=== PATIENT | male | born 1960 | race Caucasian/White ===

== ENCOUNTER 2023-04-29 20:59 | Emergency (ER) | payer OTHER ==
[2023-04-29 21:35] LABS: Amphetamine Not Detected (NotDetected); Bacteria/HPF 1+ HPF (None Seen); Barbiturates Screen Not Detected (NotDetected); Benzodiazepine Screen Not Detected (NotDetected); Bilirubin Negative (Negative); Blood, Urine 1+ (Negative); CAUTI Indications for Culture Alt mental st,lethar; Clarity Turbid (Clear); Cocaine Metabolite Screen Not Detected (NotDetected); Glucose, Urine (Dipstick) Normal (Negative); Ketone, Urine Negative (Negative); Leukocyte 500 Leu/uL (Negative); Methadone Not Detected (NotDetected); Methamphetamine Not Detected (NotDetected); Nitrite Negative (Negative); Opiate Screen Not Detected (NotDetected); Oxycodone Screen Not Detected (NotDetected); Phencyclidine (PCP) Not Detected (NotDetected); Protein, Urine (Dipstick) 50 mg/dL (Neg-Trace); Specific Gravity, Urine 1.016 (1.002-1.036); Squamous Epithelial 0-3 HPF (0-3); THC/Cannabinoid Screen Not Detected (NotDetected); Tricyclic Screen Not Detected (NotDetected); Urobilinogen Normal mg/dL (Less than 2); WBC/HPF 21-50 HPF (0-3); Yeast-Budding Rare HPF (None Seen); pH, Urine 6.5 (5.0-9.0)
[2023-04-29 21:36] LABS: Urine Culture Reflex Yes Yes
[2023-04-29 22:12] LABS: Acetaminophen Less than 10 mcg/mL (10.0-30.0); Alcohol Less than 10.0 mg/dL (Less than 10); Salicylate Less than 8.0 mg/dL (15.0-30.0)
[2023-04-29] MEDS ORDERED: LevoFLOXacin 250 MG TAB ONE (22:58)
[2023-04-30] MEDS ORDERED: Carvedilol 6.25 MG TAB PO SCH (09:00)
== END 2023-04-30 10:15 ==
LOC: ERS 20:59
DX: R45.851 Suicidal ideations (principal); E11.9 Type 2 diabetes mellitus without complications; I10 Essential (primary) hypertension; E78.5 Hyperlipidemia, unspecified; Z79.899 Other long term (current) drug therapy; Z79.84 Long term (current) use of oral hypoglycemic drugs; Z79.82 Long term (current) use of aspirin
CPT/HCPCS: 36415; 36416; 80306; 80307; 81001; 87086; 99285

== ENCOUNTER 2023-05-14 21:22 | Inpatient (IN) | payer MEDICARE, OTHER ==
[2023-05-14 22:13] LABS: Bilirubin Negative (Negative); Blood, Urine 3+ (Negative); CAUTI Indications for Culture Alt mental st,lethar; Clarity Clear (Clear); Glucose, Urine (Dipstick) Greater than 1000 mg/dL (Negative); Ketone, Urine Negative (Negative); Leukocyte 500 Leu/uL (Negative); Nitrite Negative (Negative); Protein, Urine (Dipstick) 20 mg/dL (Neg-Trace); Specific Gravity, Urine 1.019 (1.002-1.036); Squamous Epithelial 0-3 HPF (0-3); Urobilinogen Normal mg/dL (Less than 2); WBC/HPF Greater than 50 HPF (0-3); Yeast-Budding 1+ HPF (None Seen); pH, Urine 6.5 (5.0-9.0)
[2023-05-14 22:13] LABS: #Eosinphils 0.1 thou/uL (0.0-0.7); #Monocytes 0.7 thou/uL (0.11-0.59); #Neutrophils 5.7 thou/uL (1.40-6.50); %Basophils 0.4 % (0.0-1.0); %Eosinophils 1.3 % (0.0-10.0); %Lymphocytes 18.1 % (21.0-51.0); %Monocytes 8.8 % (0.0-10.0); %Neutrophils 71.3 % (42.0-75.0); Hematocrit 41.5 % (42.0-52.0); Hemoglobin 13.1 g/dL (14.0-18.0); Mean Corpuscular HGB CONC 31.6 g/dL (32.0-36.0); Mean Corpuscular Hemoglobin 25.6 pg (27.0-31.0); Mean Corpuscular Volume 81.1 fl (78.0-98.0); Mean Platelet Volume 9.5 fL (7.4-10.4); Platelet Count 223 10x3/uL (130-400); RBC Distribution Width 15.3 % (11.5-14.5); Red Blood Cell (RBC) Count 5.12 mill/uL (4.70-6.10)
[2023-05-14 22:14] LABS: Bacteria/HPF 1+ HPF (None Seen)
[2023-05-14 22:15] LABS: Urine Culture Reflex Yes Yes
[2023-05-14 22:30] LABS: ALT (SGPT) 15 U/L (8-55); AST (SGOT) 17 U/L (5-34); Albumin 3.9 g/dL (3.5-5.0); Alkaline Phosphatase 81 U/L (40-110); Anion Gap 16 mmol/L (10-20); BUN (Urea Nitrogen) 22 mg/dL (8.4-25.7); Bilirubin, Total 0.4 mg/dL (0.2-1.2); CK (CPK) 69 U/L (30-200); Calc. Creatinine Clearance 0 mL/min (70-130); Calcium 9.3 mg/dL (7.8-10.44); Carbon Dioxide 24 mmol/L (22-29); Chloride 105 mmol/L (98-107); Estimated GFR 51; Globulin 2.6 g/dL (2.4-3.5); Glucose 322 mg/dL (70-105); Potassium 4.5 mmol/L (3.5-5.1); Protein, Total 6.5 g/dL (6.0-8.3); Sodium 140 mmol/L (136-145)
[2023-05-14 22:32] LABS: Acetaminophen Less than 10 mcg/mL (10.0-30.0); Alcohol Less than 10.0 mg/dL (Less than 10); Salicylate Less than 8.0 mg/dL (15.0-30.0)
[2023-05-14] MEDS ORDERED: VANCOMYCIN 2 GRAM/500 ML BAG 2 GM in Premix Bag 1 BAG IVPB SCH (23:00)
[2023-05-14] MEDS ORDERED: cefTRIAXone (ROCEPHIN) 2 GM VIAL ONE (23:48)
[2023-05-15 02:50] LABS: Amphetamine Not Detected (NotDetected); Barbiturates Screen Not Detected (NotDetected); Benzodiazepine Screen Not Detected (NotDetected); Cocaine Metabolite Screen Not Detected (NotDetected); Methadone Not Detected (NotDetected); Methamphetamine Not Detected (NotDetected); Opiate Screen Not Detected (NotDetected); Oxycodone Screen Not Detected (NotDetected); Phencyclidine (PCP) Not Detected (NotDetected); THC/Cannabinoid Screen Not Detected (NotDetected); Tricyclic Screen Not Detected (NotDetected)
[2023-05-15] MEDS: Sodium Chloride 0.9% 1,000 ML IV SCH ×2 (08:26→14:54)
[2023-05-15] MEDS ORDERED: Dextrose 50% Abboject 50 ML SYRINGE SLOW IVP PRN (10:08)
[2023-05-15] MEDS ORDERED: Glucagon 1 MG/ML KIT IM PRN (10:08)
[2023-05-15] MEDS ORDERED: Bisacodyl 10 MG SUPP PR PRN (10:08)
[2023-05-15] MEDS ORDERED: Dextrose 5% in Water 1,000 ML IV PRN (10:08)
[2023-05-15] MEDS ORDERED: Bisacodyl 5 MG TAB PO PRN (10:08)
[2023-05-15] MEDS ORDERED: Senokot S 8.6-50 MG TAB PO PRN (10:08)
[2023-05-15] MEDS ORDERED: VANCOMYCIN IVPB PRN (10:52)
[2023-05-15] MEDS: HumaLOG 300 UNITS/3 ML VIAL SC PRN ×2 (13:10→17:54)
[2023-05-15] MEDS: Vancomycin 1 GM in Premix Bag 1 BAG IVPB SCH (13:11)
[2023-05-15] MEDS: Acetaminophen 500 MG TAB PO SCH ×2 (14:53→20:37)
[2023-05-15] MEDS: Heparin 5,000 UNITS/ML VIAL SC SCH ×2 (14:53→20:28)
[2023-05-15] MEDS: Betamethasone 0.1% Cream 15 GM TUBE TOP SCH (20:10)
[2023-05-15] MEDS: Tamsulosin HCl 0.4 MG CAP PO SCH (20:27)
[2023-05-15] MEDS: Famotidine 20 MG TAB PO SCH (20:28)
[2023-05-15] MEDS ORDERED: HumaLOG 300 UNITS/3 ML VIAL SC SCH (21:00)
[2023-05-15] MEDS ORDERED: cefTRIAXone\\ROCEPHIN 1 GM in Sodium Chloride 0.9% 100 ML IVPB SCH (23:59)
[2023-05-16] MEDS: Vancomycin 1 GM in Premix Bag 1 BAG IVPB SCH (01:57)
[2023-05-16] MEDS: Sodium Chloride 0.9% 1,000 ML IV SCH (03:05)
[2023-05-16 05:52] LABS: #Eosinphils 0.2 thou/uL (0.0-0.7); #Monocytes 0.6 thou/uL (0.11-0.59); #Neutrophils 4.1 thou/uL (1.40-6.50); %Basophils 0.5 % (0.0-1.0); %Eosinophils 3.7 % (0.0-10.0); %Lymphocytes 22.8 % (21.0-51.0); %Monocytes 9.4 % (0.0-10.0); %Neutrophils 63.3 % (42.0-75.0); Hematocrit 39.3 % (42.0-52.0); Hemoglobin 11.8 g/dL (14.0-18.0); Mean Corpuscular Hemoglobin 25.1 pg (27.0-31.0); Mean Corpuscular Volume 83.4 fl (78.0-98.0); Mean Platelet Volume 9.5 fL (7.4-10.4); Platelet Count 181 10x3/uL (130-400); RBC Distribution Width 15.1 % (11.5-14.5); Red Blood Cell (RBC) Count 4.71 mill/uL (4.70-6.10); White Blood Cell (WBC) Count 6.4 10x3/uL (4.8-10.8)
[2023-05-16 06:08] LABS: Anion Gap 10 mmol/L (10-20); BUN (Urea Nitrogen) 15 mg/dL (8.4-25.7); Calc. Creatinine Clearance 130 mL/min (70-130); Calcium 8.7 mg/dL (7.8-10.44); Carbon Dioxide 24 mmol/L (22-29); Chloride 108 mmol/L (98-107); Estimated GFR 79; Glucose 140 mg/dL (70-105); Potassium 4.2 mmol/L (3.5-5.1); Sodium 138 mmol/L (136-145)
[2023-05-16 10:22] VITALS: BMI 36.3
[2023-05-16] MEDS: Heparin 5,000 UNITS/ML VIAL SC SCH ×3 (10:42→21:17)
[2023-05-16] MEDS: Betamethasone 0.1% Cream 15 GM TUBE TOP SCH ×2 (10:43→21:17)
[2023-05-16] MEDS: Acetaminophen 500 MG TAB PO SCH ×3 (10:43→21:18)
[2023-05-16] MEDS: Fluconazole 100 MG TAB PO SCH (10:43)
[2023-05-16] MEDS: Famotidine 20 MG TAB PO SCH ×2 (10:43→21:16)
[2023-05-16] MEDS ORDERED: Milk Of Magnesia 30 ML UDCUP PO PRN (17:58)
[2023-05-16] MEDS: Sulfameth/Trimethoprim DS 800-160mg TAB PO SCH (21:17)
[2023-05-16] MEDS: Insulin Glargine 30 UNITS/0.3 ML VIAL SC SCH (21:17)
[2023-05-16] MEDS: Tamsulosin HCl 0.4 MG CAP PO SCH (21:18)
[2023-05-16] MEDS: Atorvastatin Calcium 40 MG TAB PO SCH (21:18)
[2023-05-17 06:21] LABS: #Eosinphils 0.2 thou/uL (0.0-0.7); #Monocytes 0.7 thou/uL (0.11-0.59); #Neutrophils 3.8 thou/uL (1.40-6.50); %Basophils 0.5 % (0.0-1.0); %Lymphocytes 23.2 % (21.0-51.0); %Monocytes 10.8 % (0.0-10.0); %Neutrophils 62.3 % (42.0-75.0); Hematocrit 38.8 % (42.0-52.0); Mean Corpuscular HGB CONC 30.9 g/dL (32.0-36.0); Mean Corpuscular Hemoglobin 25.4 pg (27.0-31.0); Mean Platelet Volume 9.4 fL (7.4-10.4); Platelet Count 176 10x3/uL (130-400); RBC Distribution Width 15.1 % (11.5-14.5); Red Blood Cell (RBC) Count 4.73 mill/uL (4.70-6.10)
[2023-05-17 06:43] LABS: Anion Gap 10 mmol/L (10-20); BUN (Urea Nitrogen) 16 mg/dL (8.4-25.7); Calc. Creatinine Clearance 111 mL/min (70-130); Calcium 9.2 mg/dL (7.8-10.44); Carbon Dioxide 26 mmol/L (22-29); Chloride 107 mmol/L (98-107); Estimated GFR 66; Glucose 153 mg/dL (70-105); Potassium 4.1 mmol/L (3.5-5.1); Sodium 139 mmol/L (136-145)
[2023-05-17] MEDS ORDERED: Iopamidol 15 ML ONE (10:21)
[2023-05-17] MEDS ORDERED: LevoFLOXacin 500 mg/D5W 100 ML BAG ONE (10:40)
[2023-05-17] MEDS ORDERED: fentaNYL PF 100 MCG/2 ML SYRINGE ONE (10:53)
[2023-05-17] MEDS ORDERED: SUGAMMADEX SODIUM 200 MG/2 ML VIAL ONE (10:53)
[2023-05-17] MEDS ORDERED: Midazolam HCl 2 mg/2 ml Vial ONE (10:53)
[2023-05-17] MEDS ORDERED: Dexmedetomidine 200 MCG/2 ML VIAL ONE (10:53)
[2023-05-17] MEDS ORDERED: Ondansetron PF 4 MG/2 ML Vial ONE (11:00)
[2023-05-17] MEDS ORDERED: PROPOFOL 200 MG/20 ML VIAL ONE (11:00)
[2023-05-17] MEDS ORDERED: Lidocaine 1% PF 5 ML VIAL ONE (11:00)
[2023-05-17] MEDS ORDERED: Rocuronium Bromide 10 MG/ML (10ML VIAL) ONE (11:00)
[2023-05-17] MEDS: Acetaminophen 500 MG TAB PO SCH ×2 (15:32→20:20)
[2023-05-17] MEDS: Betamethasone 0.1% Cream 15 GM TUBE TOP SCH ×2 (15:33→20:33)
[2023-05-17] MEDS: Fluconazole 100 MG TAB PO SCH (15:33)
[2023-05-17] MEDS: Heparin 5,000 UNITS/ML VIAL SC SCH ×2 (15:33→20:21)
[2023-05-17] MEDS: Sulfameth/Trimethoprim DS 800-160mg TAB PO SCH ×2 (15:34→20:22)
[2023-05-17] MEDS: Atorvastatin Calcium 40 MG TAB PO SCH (20:20)
[2023-05-17] MEDS: Carvedilol 6.25 MG TAB PO SCH (20:20)
[2023-05-17] MEDS: Doxycycline 100 MG CAP PO SCH (20:22)
[2023-05-17] MEDS: Tamsulosin HCl 0.4 MG CAP PO SCH (20:22)
[2023-05-17] MEDS: Insulin Glargine 30 UNITS/0.3 ML VIAL SC SCH (20:23)
[2023-05-17] MEDS ORDERED: Phenazopyridine HCl 100 MG TAB PO SCH (21:45)
[2023-05-18 05:52] LABS: #Eosinphils 0.2 thou/uL (0.0-0.7); #Neutrophils 6.6 thou/uL (1.40-6.50); %Basophils 0.3 % (0.0-1.0); %Eosinophils 2.1 % (0.0-10.0); %Lymphocytes 13.3 % (21.0-51.0); %Monocytes 10.8 % (0.0-10.0); %Neutrophils 73.3 % (42.0-75.0); Hematocrit 39.4 % (42.0-52.0); Hemoglobin 12.5 g/dL (14.0-18.0); Mean Corpuscular HGB CONC 31.7 g/dL (32.0-36.0); Mean Corpuscular Hemoglobin 25.5 pg (27.0-31.0); Mean Corpuscular Volume 80.4 fl (78.0-98.0); Mean Platelet Volume 9.7 fL (7.4-10.4); Platelet Count 180 10x3/uL (130-400); RBC Distribution Width 15.2 % (11.5-14.5)
[2023-05-18 06:29] LABS: Anion Gap 11 mmol/L (10-20); BUN (Urea Nitrogen) 14 mg/dL (8.4-25.7); Calc. Creatinine Clearance 115 mL/min (70-130); Calcium 9.1 mg/dL (7.8-10.44); Carbon Dioxide 24 mmol/L (22-29); Chloride 104 mmol/L (98-107); Estimated GFR 69; Glucose 182 mg/dL (70-105); Potassium 4.2 mmol/L (3.5-5.1); Sodium 135 mmol/L (136-145)
[2023-05-18] MEDS: Doxycycline 100 MG CAP PO SCH ×2 (08:57→20:23)
[2023-05-18] MEDS: Sulfameth/Trimethoprim DS 800-160mg TAB PO SCH ×2 (08:57→20:21)
[2023-05-18] MEDS: glipiZIDE 10 MG TAB PO SCH (08:57)
[2023-05-18] MEDS: FLUoxetine HCl 20 MG CAP PO SCH (08:57)
[2023-05-18] MEDS: Acetaminophen 500 MG TAB PO SCH ×3 (08:58→20:21)
[2023-05-18] MEDS: Empagliflozin 25 MG TAB PO SCH (08:58)
[2023-05-18] MEDS: Carvedilol 6.25 MG TAB PO SCH ×2 (08:58→20:23)
[2023-05-18] MEDS: Furosemide 40 MG TAB PO SCH (08:58)
[2023-05-18] MEDS: Betamethasone 0.1% Cream 15 GM TUBE TOP SCH ×2 (08:58→20:21)
[2023-05-18] MEDS: Heparin 5,000 UNITS/ML VIAL SC SCH ×3 (08:58→20:22)
[2023-05-18] MEDS: Aripiprazole 2 MG TAB PO SCH (08:58)
[2023-05-18] MEDS: Fluconazole 100 MG TAB PO SCH (08:59)
[2023-05-18] MEDS: Famotidine 20 MG TAB PO SCH (11:01)
[2023-05-18] MEDS: HumaLOG 300 UNITS/3 ML VIAL SC PRN (18:03)
[2023-05-18] MEDS: Atorvastatin Calcium 40 MG TAB PO SCH (20:20)
[2023-05-18] MEDS: Insulin Glargine 30 UNITS/0.3 ML VIAL SC SCH (20:29)
[2023-05-18] MEDS: Tamsulosin HCl 0.4 MG CAP PO SCH (20:32)
[2023-05-19 04:36] LABS: #Eosinphils 0.2 thou/uL (0.0-0.7); #Monocytes 0.8 thou/uL (0.11-0.59); #Neutrophils 5.5 thou/uL (1.40-6.50); %Basophils 0.3 % (0.0-1.0); %Eosinophils 2.2 % (0.0-10.0); %Lymphocytes 16.3 % (21.0-51.0); %Monocytes 10.4 % (0.0-10.0); %Neutrophils 70.5 % (42.0-75.0); Hematocrit 40.9 % (42.0-52.0); Hemoglobin 12.7 g/dL (14.0-18.0); Mean Corpuscular HGB CONC 31.1 g/dL (32.0-36.0); Mean Corpuscular Hemoglobin 25.4 pg (27.0-31.0); Mean Corpuscular Volume 81.8 fl (78.0-98.0); Mean Platelet Volume 9.5 fL (7.4-10.4); Platelet Count 175 10x3/uL (130-400); RBC Distribution Width 15.1 % (11.5-14.5); White Blood Cell (WBC) Count 7.8 10x3/uL (4.8-10.8)
[2023-05-19 04:56] LABS: Anion Gap 12 mmol/L (10-20); BUN (Urea Nitrogen) 14 mg/dL (8.4-25.7); Calc. Creatinine Clearance 111 mL/min (70-130); Calcium 9.5 mg/dL (7.8-10.44); Carbon Dioxide 23 mmol/L (22-29); Chloride 106 mmol/L (98-107); Estimated GFR 66; Glucose 169 mg/dL (70-105); Sodium 137 mmol/L (136-145)
[2023-05-19 08:14] VITALS: TEMP 98.1
[2023-05-19] MEDS: Heparin 5,000 UNITS/ML VIAL SC SCH ×3 (08:34→20:44)
[2023-05-19] MEDS: Carvedilol 6.25 MG TAB PO SCH ×2 (08:34→20:52)
[2023-05-19] MEDS: FLUoxetine HCl 20 MG CAP PO SCH (08:35)
[2023-05-19] MEDS: Furosemide 40 MG TAB PO SCH (08:36)
[2023-05-19] MEDS: glipiZIDE 10 MG TAB PO SCH (08:36)
[2023-05-19] MEDS: Fluconazole 100 MG TAB PO SCH (08:36)
[2023-05-19] MEDS: Empagliflozin 25 MG TAB PO SCH (08:37)
[2023-05-19] MEDS: Aripiprazole 2 MG TAB PO SCH (08:37)
[2023-05-19] MEDS: Acetaminophen 500 MG TAB PO SCH ×3 (08:37→20:52)
[2023-05-19] MEDS: Betamethasone 0.1% Cream 15 GM TUBE TOP SCH ×2 (08:37→20:52)
[2023-05-19] MEDS: Doxycycline 100 MG CAP PO SCH ×2 (08:37→20:44)
[2023-05-19] MEDS: Sulfameth/Trimethoprim DS 800-160mg TAB PO SCH ×2 (08:38→20:43)
[2023-05-19] MEDS: HumaLOG 300 UNITS/3 ML VIAL SC PRN (15:10)
[2023-05-19] MEDS: Atorvastatin Calcium 40 MG TAB PO SCH (20:43)
[2023-05-19] MEDS: Insulin Glargine 30 UNITS/0.3 ML VIAL SC SCH (20:44)
[2023-05-19] MEDS: Tamsulosin HCl 0.4 MG CAP PO SCH (20:52)
[2023-05-20 06:33] LABS: #Eosinphils 0.2 thou/uL (0.0-0.7); #Monocytes 0.9 thou/uL (0.11-0.59); #Neutrophils 5.2 thou/uL (1.40-6.50); %Basophils 0.4 % (0.0-1.0); %Eosinophils 2.7 % (0.0-10.0); %Lymphocytes 18.1 % (21.0-51.0); %Monocytes 11.8 % (0.0-10.0); %Neutrophils 66.7 % (42.0-75.0); Hematocrit 41.7 % (42.0-52.0); Hemoglobin 12.8 g/dL (14.0-18.0); Mean Corpuscular HGB CONC 30.7 g/dL (32.0-36.0); Mean Corpuscular Hemoglobin 25.3 pg (27.0-31.0); Mean Corpuscular Volume 82.4 fl (78.0-98.0); Mean Platelet Volume 9.6 fL (7.4-10.4); Platelet Count 182 10x3/uL (130-400); RBC Distribution Width 15.2 % (11.5-14.5); Red Blood Cell (RBC) Count 5.06 mill/uL (4.70-6.10); White Blood Cell (WBC) Count 7.7 10x3/uL (4.8-10.8)
[2023-05-20 06:54] LABS: Anion Gap 16 mmol/L (10-20); BUN (Urea Nitrogen) 16 mg/dL (8.4-25.7); Calc. Creatinine Clearance 92 mL/min (70-130); Calcium 9.4 mg/dL (7.8-10.44); Carbon Dioxide 18 mmol/L (22-29); Chloride 105 mmol/L (98-107); Estimated GFR 53; Glucose 176 mg/dL (70-105); Potassium 4.6 mmol/L (3.5-5.1); Sodium 134 mmol/L (136-145)
[2023-05-20] MEDS: Heparin 5,000 UNITS/ML VIAL SC SCH ×2 (08:26→15:38)
[2023-05-20] MEDS: Fluconazole 100 MG TAB PO SCH (08:26)
[2023-05-20] MEDS: Acetaminophen 500 MG TAB PO SCH ×2 (08:26→15:39)
[2023-05-20] MEDS: glipiZIDE 10 MG TAB PO SCH (08:26)
[2023-05-20] MEDS: Sulfameth/Trimethoprim DS 800-160mg TAB PO SCH (08:27)
[2023-05-20] MEDS: Empagliflozin 25 MG TAB PO SCH (08:28)
[2023-05-20] MEDS: Furosemide 40 MG TAB PO SCH (08:28)
[2023-05-20] MEDS: Doxycycline 100 MG CAP PO SCH (08:28)
[2023-05-20] MEDS: FLUoxetine HCl 20 MG CAP PO SCH (08:29)
[2023-05-20] MEDS: Carvedilol 6.25 MG TAB PO SCH (08:29)
[2023-05-20] MEDS: Aripiprazole 2 MG TAB PO SCH (08:32)
[2023-05-20] MEDS: Betamethasone 0.1% Cream 15 GM TUBE TOP SCH (08:32)
[2023-05-20 08:39] VITALS: BP 169/86
[2023-05-20] MEDS: HumaLOG 300 UNITS/3 ML VIAL SC PRN ×2 (12:50→17:25)
== END 2023-05-20 17:53 | disposition home or self-care (01) | DRG 660 ==
LOC: ERS 21:22 → SURG A 05-15 02:12 → OBSVTOIN 05-17 17:14
PROVIDERS: ADMIT Student in an Organized Health Care Education/Training Program; ATTEND Family Medicine
PROC: 0T768DZ Dilation of Right Ureter with Intraluminal Device, Via Natural or Artificial Opening Endoscopic (ICD-10-PCS; principal; 2023-05-17)
PROC: 0TC08ZZ Extirpation of Matter from Right Kidney, Via Natural or Artificial Opening Endoscopic (ICD-10-PCS; 2023-05-17)
PROC: 0TC68ZZ Extirpation of Matter from Right Ureter, Via Natural or Artificial Opening Endoscopic (ICD-10-PCS; 2023-05-17)
PROC: BT1D1ZZ Fluoroscopy of Right Kidney, Ureter and Bladder using Low Osmolar Contrast (ICD-10-PCS; 2023-05-17)
DX: T83.592A Infection and inflammatory reaction due to indwelling ureteral stent, initial encounter (principal); N20.2 Calculus of kidney with calculus of ureter; R45.851 Suicidal ideations; N39.0 Urinary tract infection, site not specified; I10 Essential (primary) hypertension; E78.5 Hyperlipidemia, unspecified; K21.9 Gastro-esophageal reflux disease without esophagitis; E11.9 Type 2 diabetes mellitus without complications; R31.9 Hematuria, unspecified; N28.9 Disorder of kidney and ureter, unspecified; L53.9 Erythematous condition, unspecified; N40.0 Benign prostatic hyperplasia without lower urinary tract symptoms; I87.2 Venous insufficiency (chronic) (peripheral); F10.90 Alcohol use, unspecified, uncomplicated; Z96.652 Presence of left artificial knee joint; Z96.0 Presence of urogenital implants; Z86.73 Personal history of transient ischemic attack (TIA), and cerebral infarction without residual deficits; Z88.5 Allergy status to narcotic agent; Z88.8 Allergy status to other drugs, medicaments and biological substances; Z79.82 Long term (current) use of aspirin; Z79.4 Long term (current) use of insulin; Z83.3 Family history of diabetes mellitus; Z87.891 Personal history of nicotine dependence; Z90.49 Acquired absence of other specified parts of digestive tract
CPT/HCPCS: 36415; 36416; 74176; 74420; 80048; 80053; 80306; 80307; 81001; 82365; 82550; 83605; 84443; 84484; 85025; 87040; 87086; 88300; 93005; 96365; 96366; 96367; 96372; 96376; 97139; C1747; C2617; G0378; J0696; J1644; J1815; J1956; J2250; J2405; J2704; J3370; J3370-JW; J3490; J7050; Q9967